=== PATIENT | female | born 1985 | race Two or more races ===

== ENCOUNTER 2025-01-21 05:38 | Day surgery (SDC) | payer OTHER ==
[2025-01-19 10:25] VITALS: BP 118/77
[~2025-01-21] VITALS: Ht 154.9 cm; Wt 66.7 kg
[2025-01-21] MEDS ORDERED: EPINEPHRINE HCL/PF 1 MG/ML AMPUL ONE ×3 (06:45→09:20)
[2025-01-21] MEDS ORDERED: CEFAZOLIN SODIUM 1,000 MG VIAL ONE (06:54)
[2025-01-21] MEDS ORDERED: LIDOCAINE HCL 1% 20 ML VIAL IJ ONE ×3 (07:11→09:24)
[2025-01-21] MEDS ORDERED: TRANEXAMIC ACID 100MG/1ML (1000MG) AMPUL ONE (07:17)
[2025-01-21] MEDS ORDERED: ENOXAPARIN SODIUM 60 MG/0.6 ML SYRINGE SUBCUTANEO ONE ×2 (08:45→09:00)
[2025-01-21] MEDS ORDERED: SUGAMMADEX SODIUM 200 MG/2 ML VIAL IV ONE (13:59)
[2025-01-21] MEDS ORDERED: MORPHINE SULFATE 4 MG/ML VIAL IV ONE ×2 (15:10→15:40)
== END 2025-01-21 16:55 | disposition home or self-care (01) ==
LOC: CIR.AMB 05:38
PROVIDERS: ATTEND Specialist
DX: E65 Localized adiposity (principal); L98.7 Excessive and redundant skin and subcutaneous tissue